=== PATIENT | male | born 1990 | race Caucasian/White ===

== ENCOUNTER 2021-12-03 14:14 | Outpatient (RCR) | payer OTHER | END 2021-12-07 | LOC: WSOH | DX: S90.31XA Contusion of right foot, initial encounter (principal); S80.11XA Contusion of right lower leg, initial encounter; Y99.0 Civilian activity done for income or pay ==

== ENCOUNTER 2021-12-21 11:00 | Outpatient (RCR) | payer OTHER | END 2022-01-04 | disposition home or self-care (01) | LOC: WSOH | DX: S90.31XD Contusion of right foot, subsequent encounter (principal); S80.11XD Contusion of right lower leg, subsequent encounter; Y99.0 Civilian activity done for income or pay ==